=== PATIENT | female | born 1965 | race Caucasian/White ===

== ENCOUNTER 2016-12-19 13:01 | Observation (INO) | payer BC ==
[~2016-12-19] VITALS: Ht 157.5 cm; Wt 55.0 kg
[~2016-12-19 13:01] MED LIST: ASPI-650 PO
[2016-12-19] MEDS ORDERED: LACTATED RINGERS 1,000 ML IV SCH (13:26)
[2016-12-19] MEDS ORDERED: LIDOCAINE 1%, 2ML SQ PRN (13:30)
[2016-12-19] MEDS ORDERED: PAPAVERINE 30 MG/ML, 2ML ONE (15:08)
[2016-12-19] MEDS ORDERED: BUPIVACAINE/PF 0.5% ONE (15:08)
[2016-12-19] MEDS ORDERED: THROMBIN 20,000 UNIT VIAL TP ONE (15:09)
[2016-12-19] MEDS ORDERED: BACITRACIN 50,000 UNIT ONE (15:09)
[2016-12-19] MEDS ORDERED: LIDOCAINE/PF 1%, 30ML ONE (15:09)
[2016-12-19] MEDS ORDERED: EPINEPHRINE 1 MG/ML, 1ML ONE (15:09)
[2016-12-19] MEDS ORDERED: HEPARIN 1,000 UNITS/ML, 10ML ONE (15:09)
[2016-12-19] MEDS ORDERED: PROTAMINE SULFATE 10 MG/ML, 5ML ONE (15:09)
[2016-12-19] MEDS ORDERED: PHENYLEPHRINE 10 MG/ML ONE (15:30)
[2016-12-19] MEDS ORDERED: ONDANSETRON 2MG/ML, 2ML ONE (15:30)
[2016-12-19] MEDS ORDERED: DEXAMETHASONE 4 MG/ML, 1ML ONE (15:30)
[2016-12-19] MEDS ORDERED: LIDOCAINE 2%, 10ML ONE (15:30)
[2016-12-19] MEDS ORDERED: PROPOFOL 10 MG/ML, 20ML ONE (15:30)
[2016-12-19] MEDS ORDERED: FENTANYL PF 100 MCG/2ML ONE ×3 (15:30→17:36)
[2016-12-19] MEDS ORDERED: ROCURONIUM 10 MG/ML ONE (15:30)
[2016-12-19] MEDS ORDERED: HYDROmorphone 1 MG/ML, 1ML ONE (15:30)
[2016-12-19] MEDS ORDERED: PNEUMOCOCCAL 23 VACCINE IM-VACC ONE (16:00)
[2016-12-19] MEDS ORDERED: ONDANSETRON 2MG/ML, 2ML IVPush PRN (16:30)
[2016-12-19] MEDS ORDERED: HYDROmorphone 1 MG/ML, 1ML IV PRN (16:30)
[2016-12-19] MEDS ORDERED: OXYcodone 5 MG/5 ML ORAL.SOL UDC PO PRN (16:30)
[2016-12-19] MEDS ORDERED: ACETAMINOPHEN 325 MG TABLET PO PRN (16:30)
[2016-12-19] MEDS ORDERED: HYDROcodone/APAP 7.5-325MG/15ML UDC PO PRN (16:30)
[2016-12-19] MEDS: D5%-0.45% NACL 1,000 ML IV SCH (17:13)
[2016-12-19] MEDS ORDERED: hydrALAzine 20 MG/ML, 1ML ONE (17:35)
[2016-12-19] MEDS ORDERED: OXYcodone 5 MG/5 ML ORAL.SOL UDC ONE (17:36)
[2016-12-19] MEDS: FENTANYL PF 100 MCG/2ML IV PRN ×2 (17:45→18:16)
[2016-12-19] MEDS ORDERED: LABETALOL 5MG/ML, 20ML IV PRN (18:00)
[2016-12-19] MEDS ORDERED: ENALAPRILAT 1.25 MG/ML, 2ML IV PRN (18:00)
[2016-12-19] MEDS ORDERED: hydrALAzine 20 MG/ML, 1ML IV PRN (18:00)
[2016-12-19] MEDS: CEFAZOLIN PMX 1GM/50ML 50 ML IVPB SCH (21:56)
[2016-12-19] MEDS: HYDROcodone/APAP 5/325 TABLET PO PRN (22:00)
[2016-12-20] MEDS: D5%-0.45% NACL 1,000 ML IV SCH (01:15)
[2016-12-20 02:12] VITALS: BP 94/51
[2016-12-20] MEDS: HYDROcodone/APAP 5/325 TABLET PO PRN ×3 (03:27→13:30)
[2016-12-20] MEDS: CEFAZOLIN PMX 1GM/50ML 50 ML IVPB SCH ×2 (05:41→09:04)
[2016-12-20 07:17] VITALS: BP 101/64
[2016-12-20] MEDS ORDERED: ASPIRIN 325 MG TABLET EC PO SCH (09:00)
[2016-12-20 13:01] VITALS: BP 122/67
== END 2016-12-20 14:10 | disposition home or self-care (01) ==
LOC: OUT 13:01 → ORIP 17:13 → 4NOR 19:55
PROVIDERS: ADMIT Surgery; ATTEND Surgery
DX: I65.21 Occlusion and stenosis of right carotid artery (principal); I63.9 Cerebral infarction, unspecified; Z23 Encounter for immunization
CPT/HCPCS: 35301; 36415; 86850; 86870; 86900; 86902; 86922; 90732; 96365; 96366; 99285; C1781; G0009; G0378; J0171; J0360; J0690; J1100; J1170; J1644; J2370; J2405; J2704; J2720; J3010; J3490; J7120; 86923; J2440